=== PATIENT | male | born 1945 | race Caucasian/White ===

== ENCOUNTER 2018-06-16 16:25 | Inpatient (IN) | payer OTHER, MEDICAID ==
[~2018-06-16] VITALS: Ht 157.5 cm; Wt 60.6 kg
[2018-06-16 16:48] VITALS: Ht 157.5 cm; Wt 60.6 kg
[2018-06-16 18:14] LABS: BASOPHIL % 0.4 % (0-2); PLATELET COUNT 210 x10^3mcL (130-400)
[2018-06-16 18:33] LABS: CALCIUM 8.6 mg/dL (8.5-10.1); CARBON DIOXIDE 28.6 mmol/L (21-32); CHLORIDE SERUM 102 mmol/L (98-107); GFR1 > 60 mL/min; GLUCOSE SERUM 90 mg/dL (74-106); POTASSIUM SERUM 4.2 mmol/L (3.5-5.1); SODIUM SERUM 137 mmol/L (136-145)
[2018-06-16 18:40] LABS: ALBUMIN 3.5 g/dL (3.4-5.0); ALKALINE PHOSPHATASE 71 U/L (46-116); ALT/SGPT 68 U/L (16-63); AST/SGOT 40 U/L (15-37); BILIRUBIN TOTAL 0.43 mg/dL (0.20-1.00)
[2018-06-16 18:45] LABS: CHOLESTEROL 204 mg/dL (<200); TOTAL PROTEIN, SERUM 8.6 g/dL (6.4-8.2)
[2018-06-16 21:44] VITALS: BP 132/63
[2018-06-17 05:36] VITALS: BP 117/65
[2018-06-17 06:26] LABS: ALKALINE PHOSPHATASE 59 U/L (46-116); ALT/SGPT 54 U/L (16-63); AST/SGOT 32 U/L (15-37); BILIRUBIN TOTAL 0.65 mg/dL (0.20-1.00); CALCIUM 8.3 mg/dL (8.5-10.1); CHLORIDE SERUM 102 mmol/L (98-107); CREATININE SERUM 0.9 mg/dL (0.7-1.3); GFR1 > 60 mL/min; GLUCOSE SERUM 82 mg/dL (74-106); LACTIC DEHYDROGENASE (LDH) 192 U/L (100-190); POTASSIUM SERUM 4.1 mmol/L (3.5-5.1); SODIUM SERUM 135 mmol/L (136-145); T3 TOTAL 1.26 ng/mL; TOTAL PROTEIN, SERUM 7.2 g/dL (6.4-8.2)
[2018-06-17 06:33] LABS: BASOPHIL % 0.3 % (0-2); PLATELET COUNT 202 x10^3mcL (130-400); RED CELL DISTRIBUTION WIDTH 13.1 % (11.5-14.5)
[2018-06-17 06:52] LABS: ALBUMIN 2.8 g/dL (3.4-5.0)
[2018-06-17 06:55] LABS: FREE T4 0.97 ng/dL (0.76-1.46); FREE THYROXINE INDEX 2.3 ug/dL (1.4-4.5); T4(THYROXINE) 6.2 ug/dL (4.7-13.3)
[2018-06-17 08:07] VITALS: BP 140/76
[2018-06-17 10:24] LABS: microscopic required? NO
[2018-06-17 10:44] LABS: UA SPECIFIC GRAVITY 1.015 (1.005-1.035); urine erythrocyte NEGATIVE (NEGATIVE)
[2018-06-17 12:18] VITALS: BP 140/69
[2018-06-17 12:24] LABS: AMPHETAMINE QUAL UR NONE DETECTED (See below)
[2018-06-17 15:13] VITALS: BP 140/69
== END 2018-06-17 15:30 | disposition home or self-care (01) | DRG 887 ==
LOC: ED 16:25 → DU 19:35
PROVIDERS: Emergency Medicine; Internal Medicine Pulmonary Disease
DX: F44.89 Other dissociative and conversion disorders (principal); G93.41 Metabolic encephalopathy; I16.9 Hypertensive crisis, unspecified; Z87.891 Personal history of nicotine dependence; Z86.73 Personal history of transient ischemic attack (TIA), and cerebral infarction without residual deficits
CPT/HCPCS: 84439; G0480; J1644; J7030